=== PATIENT | male | born 1995 | race Caucasian/White ===

== ENCOUNTER 2016-08-19 01:53 | Emergency (ER) | payer SELFPAY ==
[~2016-08-19] VITALS: Ht 177.8 cm; Wt 80.0 kg
[2016-08-19 02:00] VITALS: BP 133/83; PULSE 114; RESP 18; RESP 20; TEMP 98.6; O2SAT 100; O2SAT 96
[2016-08-19] MEDS ORDERED: ONDANSETRON HCL 4 MG/2 ML VIAL IV ONE (02:15)
[2016-08-19] MEDS ORDERED: SODIUM CHLOR 0.9% 1000 ML INJ 1,000 ML IV ONE (02:15)
--- NOTE | 2016-08-19 02:26 | PD ---
HPI Chief Complaint: Alcohol/Drug Intoxication Time Seen by Provider: 02:05 Travel History International Travel<30 days: No Contact w/Intl Traveler<30days: No Traveled to known affect area: No History of Present Illness HPI The patient is a 20 year old male who presents to the [facility] emergency department with a history of being found him a local parking lot acutely intoxicated. Prior to arrival, the patient was apparently combative with the ambulance services and the police. According to the nurse that received the patient from ambulance services the patient was restrained by the police and placed in handcuffs. The patient was brought to the ground on the asphalt has abrasions to bilateral anterior knees. The patient is also noted on arrival to have ecchymosis around the right eye. The patient denies having any acute complaints. The patient did experience nausea and vomiting prior to arrival. The patient is visiting the area for spring. The patient's clothes were covered in emesis. The patient denies any recent fevers, cough, congestion, neck pain, chest pain, shortness of breath, abdominal pain, diarrhea, urinary symptoms, or neurologic symptoms. [facility] Past Medical History Narrative Medical The patient's past medical history is reportedly none. Medical History: Unable to Obtain Tetanus Vaccination: Unknown Influenza Vaccination: Yes Past Surgical History Narrative Surgical The patient's past surgical history is reportedly none. Surgical History: Unable to Obtain Social History Alcohol Use: Yes (unknown amount this evening) Tobacco Use: No Substance Use: No Allergies-Medications (Allergen,Severity, Reaction): Coded Allergies: No Known Allergies (Unverified , 08/19/16) Reported Meds & Prescriptions Reported Meds & Active Scripts Active Active Prescriptions or Reported Medications Unobtainable Review of Systems Except as stated in HPI: all other systems reviewed are Neg General / Constitutional: No: Fever Eyes: No: Visual changes HENT: No: Headaches Cardiovascular: No: Chest Pain or Discomfort Respiratory: No: Shortness of Breath Gastrointestinal: Positive: Nausea, Vomiting, No: Abdominal Pain Genitourinary: No: Dysuria Musculoskeletal: No: Pain Skin: No Rash Neurologic: Positive: Change in Mentation, Slurred Speech, No: Weakness, Focal Abnormalities, Sensory Disturbance Psychiatric: Positive: Substance Abuse, No: Depression Endocrine: No: Polydipsia Hematologic/Lymphatic: No: Easy Bruising Physical Exam Narrative General: The patient is a well-developed well-nourished male in no acute distress. Head and Neck exam: Head is normocephalic, evidence of trauma with ecchymosis surrounding the right eye. Eyes: Extraocular motion testing is unable to be assessed as the patient is uncooperative, pupils are equal round and reactive to light. Nose: Midline septum with pink mucous membranes Mouth: Dentition unremarkable. Moist mucus membranes. Posterior oropharynx is not erythematous. No tonsillar hypertrophy. Uvula midline. Airway patent. Neck: No palpable lymphadenopathy. No nuchal rigidity. No thyromegaly. Cardiovascular: Regular rate and rhythm without murmurs, gallops, or rubs. Lungs: Clear to auscultation bilaterally. No wheezes, rhonchi, or rales. Abdomen: Soft, without tenderness to palpation in all 4 quadrants of the abdomen. No guarding, rebound, or rigidity. Normal bowel sounds are audible. Extremities: No clubbing, cyanosis, or edema. 2+ pulses in all 4 extremities. The patient has an abrasion superficially to bilateral anterior knees. The patient has an abrasion to the anterior right shoulder. There is no bony deformity, crepitus, step off, or tenderness on palpation. Back: No costovertebral angle tenderness to palpation. Neurologic Exam: The patient has slurred speech with an odor of alcohol about him. The patient is uncooperative with formal neurologic testing although he moves all extremities equally with 5 over 5 strength and intact sensation over all dermatomes. No evidence of facial asymmetry. Data Data Last Documented VS Vital Signs Date Time Temp Pulse Resp B/P Pulse Ox O2 Delivery O2 Flow Rate FiO2 08/19/16 11:00 73 16 114/73 98 Room Air 08/19/16 07:14 98.5 Orders Complete Blood Count With Diff (08/19/16 02:10) Comprehensive Metabolic Panel (08/19/16 02:10) Urinalysis - C+S If Indicated (08/19/16 02:10) Magnesium (Mg) (08/19/16 02:10) Chest, Single Ap (08/19/16 02:10) Iv Access Insert/Monitor (08/19/16 02:10) Ecg Monitoring (08/19/16 02:10) Oximetry (08/19/16 02:10) Drug Screen, Random Urine (08/19/16 02:10) Alcohol (Ethanol) (08/19/16 02:10) Sodium Chlor 0.9% 1000 Ml Inj (Ns 1000 M (08/19/16 02:15) Ondansetron Inj (Zofran Inj) (08/19/16 02:15) Ct Brain W/O Iv Contrast(Rout) (08/19/16 02:26) Ct Cerv Spine W/O Contrast (08/19/16 02:26) Cefazolin 2 Gm Premix (Ancef 2 Gm Premix (08/19/16 02:30) Qbqn-Sri-Dptdxq (Booster) Inj (Boostrix (08/19/16 02:30) Calcium Gluconate Inj (Calcium Gluconate (08/19/16 05:45) Labs Laboratory Tests Test 08/19/16 08/19/16 02:30 03:41 White Blood Count 9.5 TH/MM3 Red Blood Count 4.49 MIL/MM3 Hemoglobin 13.9 GM/DL Hematocrit 39.7 % Mean Corpuscular Volume 88.5 FL Mean Corpuscular Hemoglobin 31.0 PG Mean Corpuscular Hemoglobin 35.0 % Concent Red Cell Distribution Width 12.5 % Platelet Count 257 TH/MM3 Mean Platelet Volume 8.8 FL Neutrophils (%) (Auto) 81.9 % Lymphocytes (%) (Auto) 13.1 % Monocytes (%) (Auto) 4.4 % Eosinophils (%) (Auto) 0.2 % Basophils (%) (Auto) 0.4 % Neutrophils # (Auto) 7.8 TH/MM3 Lymphocytes # (Auto) 1.3 TH/MM3 Monocytes # (Auto) 0.4 TH/MM3 Eosinophils # (Auto) 0.0 TH/MM3 Basophils # (Auto) 0.0 TH/MM3 CBC Comment DIFF FINAL Differential Comment Sodium Level 141 MEQ/L Potassium Level 5.1 MEQ/L Chloride Level 108 MEQ/L Carbon Dioxide Level 22.7 MEQ/L Anion Gap 10 MEQ/L Blood Urea Nitrogen 7 MG/DL Creatinine 0.80 MG/DL Estimat Glomerular Filtration 122 ML/MIN Rate Random Glucose 116 MG/DL Calcium Level 7.2 MG/DL Protein Corrected Calcium 7.6 MG/DL Magnesium Level 1.8 MG/DL Total Bilirubin 0.2 MG/DL Aspartate Amino Transf 50 U/L (AST/SGOT) Alanine Aminotransferase 47 U/L (ALT/SGPT) Alkaline Phosphatase 46 U/L Total Protein 6.9 GM/DL Albumin 3.5 GM/DL Ethyl Alcohol Level 268 MG/DL [facility] Medical Decision Making Medical Screen Exam Complete: Yes Emergency Medical Condition: Yes Medical Record Reviewed: Yes Interpretation(s) Laboratory Tests Test 08/19/16 08/19/16 02:30 03:41 White Blood Count 9.5 TH/MM3 Red Blood Count 4.49 MIL/MM3 Hemoglobin 13.9 GM/DL Hematocrit 39.7 % Mean Corpuscular Volume 88.5 FL Mean Corpuscular Hemoglobin 31.0 PG Mean Corpuscular Hemoglobin 35.0 % Concent Red Cell Distribution Width 12.5 % Platelet Count 257 TH/MM3 Mean Platelet Volume 8.8 FL Neutrophils (%) (Auto) 81.9 % Lymphocytes (%) (Auto) 13.1 % Monocytes (%) (Auto) 4.4 % Eosinophils (%) (Auto) 0.2 % Basophils (%) (Auto) 0.4 % Neutrophils # (Auto) 7.8 TH/MM3 Lymphocytes # (Auto) 1.3 TH/MM3 Monocytes # (Auto) 0.4 TH/MM3 Eosinophils # (Auto) 0.0 TH/MM3 Basophils # (Auto) 0.0 TH/MM3 CBC Comment DIFF FINAL Differential Comment Sodium Level 141 MEQ/L Potassium Level 5.1 MEQ/L Chloride Level 108 MEQ/L Carbon Dioxide Level 22.7 MEQ/L Anion Gap 10 MEQ/L Blood Urea Nitrogen 7 MG/DL Creatinine 0.80 MG/DL Estimat Glomerular Filtration 122 ML/MIN Rate Random Glucose 116 MG/DL Calcium Level 7.2 MG/DL Protein Corrected Calcium 7.6 MG/DL Magnesium Level 1.8 MG/DL Total Bilirubin 0.2 MG/DL Aspartate Amino Transf 50 U/L (AST/SGOT) Alanine Aminotransferase 47 U/L (ALT/SGPT) Alkaline Phosphatase 46 U/L Total Protein 6.9 GM/DL Albumin 3.5 GM/DL Ethyl Alcohol Level 268 MG/DL Differential Diagnosis Alcohol intoxication, versus other substance intoxication, versus intracranial hemorrhage, versus concussion Narrative Course During the course of the patients emergency department visit, the patients history, examination, and differential diagnosis were reviewed with the patient. The patient had IV access obtained and blood work sent for analysis. The patient was placed on a cardiac exercise physiologist with oximetry and blood pressure monitoring. A CT scan of the head and neck was ordered. The patient was provided normal saline 1 L IV fluid bolus, Zofran 4 mg IV. The patient was given calcium gluconate gram IV. The patients laboratory studies were reviewed and remarkable for a white count of 9.5, hemoglobin 13.9, platelets 257 with 81.9 neutrophils. CMP is remarkable for chloride of 108, protein corrected calcium 7.6, glucose 116, AST 50, alcohol level [id number]. Radiology studies were reviewed and remarkable for a CT scan of the brain that shows a mild chronic sinus disease in the hypoplastic frontal area, otherwise negative, no acute intracranial process trauma or fracture, CT scan of the C- spine shows no acute abnormality. Chest x-ray shows atelectasis at the left lung base. No other acute abnormality. The patient will be observed until he is awake and alert and able to walk without assistance, or has a ride available home. The patient is resting comfortably and feels better, is alert and in no distress. The patients results and examination findings were discussed with the patient. The repeat examination is unremarkable and benign. The history, exam, diagnostic testing, and current condition do not suggest any significant pathology to warrant further testing, continued ED treatment, admission, or surgical evaluation at this point. The vital signs have been stable. The patient does not have uncontrollable pain, intractable vomiting, or other significant symptoms. The patient's condition is stable and appropriate for discharge. The patient will pursue further outpatient evaluation with a primary care physician or other designated or consulting physician as indicated in the discharge instructions. The patient expressed understanding and was agreeable with this plan. Diagnosis Primary Impression: Alcohol intoxication Qualified Code: F10.129 - Alcohol intoxication, with unspecified complication Additional Impression: Altered mental status Qualified Code: R40.0 - Somnolence Referrals: Primary Care Physician 1 week Patient Instructions: Alcohol Intoxication (ED), General Instructions Med/Other Pt SpecificInfo: No Change to Meds Scripts Unable to Obtain Active Prescriptions or Reported Meds Disposition: 01 DISCHARGE HOME Condition: Stable Patsy Silva MD Aug 19, 2016 02:26 Patsy Silva MD Aug 19, 2016 02:26
[2016-08-19] MEDS ORDERED: DIPHTH/TETANUS/ACEL PERTUSSIS (BOOSTER) 0.5 ML VIAL/PFS IM ONE (02:30)
[2016-08-19] MEDS ORDERED: ceFAZolin 2 GM PREMIX 50 ML IV ONE (02:30)
--- NOTE | 2016-08-19 02:33 | RADRPT ---
EXAM DATE/TIME: 08/19/2016 02:20 [facility] COMPARISON: No previous studies available for comparison. INDICATIONS : Short of breath. MEDICAL HISTORY : None. SURGICAL HISTORY : None. ENCOUNTER: Initial ACUITY: 1 day PAIN SCORE: 0/10 LOCATION: Bilateral chest FINDINGS: A single view of the chest demonstrates the lungs to be symmetrically aerated with possible atelectas is or early infiltrate beginning in the left base. Right lung is clear. There are no effusions. Heart size is normal. Mild dextroscoliosis of the dorsal spine. CONCLUSION: Possible atelectasis or early infiltrate medially in the left base. Right lung is clear. Kin James MD on August 19, 2016 at 2:29 Board Certified Radiologist. This report was verified electronically.
[2016-08-19 02:43] VITALS: RESP 20; O2SAT 95
[2016-08-19 02:52] LABS: AUTOMATED NEUTROPHIL # 7.8 TH/MM3 (1.8-7.7); BASOPHIL % 0.4 % (0.0-2.0); EOSINOPHIL % 0.2 % (0.0-4.0); HEMATOCRIT 39.7 % (39.0-51.0); HEMO FLAGS DIFF FINAL; LYMPH % 13.1 % (9.0-44.0); LYMPHOCYTE # 1.3 TH/MM3 (1.0-4.8); MEAN CELL VOLUME 88.5 FL (80.0-100.0); MONO % 4.4 % (0.0-8.0); NEUT % 81.9 % (16.0-70.0); PLATELET COUNT 257 TH/MM3 (150-450); RED BLOOD COUNT 4.49 MIL/MM3 (4.50-5.90); RED CELL DISTRIBUTION WIDTH 12.5 % (11.6-17.2); WHITE BLOOD COUNT 9.5 TH/MM3 (4.0-11.0)
[2016-08-19 03:00] VITALS: BP 122/56; PULSE 103; RESP 18; O2SAT 96
--- NOTE | 2016-08-19 03:04 | RADRPT ---
EXAM DATE/TIME: 08/19/2016 02:53 [facility] COMPARISON: No previous studies available for comparison. INDICATIONS : Found unresponsive. RADIATION DOSE: 37.85 CTDIvol (mGy) MEDICAL HISTORY : Non-responsive. SURGICAL HISTORY : Non-responsive. ENCOUNTER: Initial ACUITY: 1 day PAIN SCALE: Non-responsive LOCATION: cranial TECHNIQUE: Multiple contiguous axial images were obtained of the head. Using automated exposure control and adj ustment of the mA and/or kV according to patient size, radiation dose was kept as low as reasonably a chievable to obtain optimal diagnostic quality images. FINDINGS: CEREBRUM: The ventricles are normal for age. No evidence of midline shift, mass lesion, hemorrhage or acute in farction. No extra-axial fluid collections are seen. POSTERIOR FOSSA: The cerebellum and brainstem are intact. The 4th ventricle is midline. The cerebellopontine angle i s unremarkable. EXTRACRANIAL: The visualized portion of the orbits is intact. Isolated mucoperiosteal thickening in a frontal sinus SKULL: The calvaria is intact. No evidence of skull fracture. CONCLUSION: 1. Mild chronic sinus disease in the hypoplastic frontal. 2. Otherwise negative. No acute intracranial process, trauma or fracture. Kni James MD on August 19, 2016 at 3:01 Board Certified Radiologist. This report was verified electronically.
[2016-08-19 03:18] LABS: TOTAL BILIRUBIN ADULT 0.2 MG/DL (0.2-1.0)
--- NOTE | 2016-08-19 03:28 | RADRPT ---
EXAM DATE/TIME: 08/19/2016 02:53 [facility] COMPARISON: No previous studies available for comparison. INDICATIONS : Found unresponsive. RADIATION DOSE: 21.37 CTDIvol (mGy) MEDICAL HISTORY : Non-responsive. SURGICAL HISTORY : Non-responsive. ENCOUNTER: Initial ACUITY: 1 day PAIN SCALE: Non-responsive LOCATION: neck TECHNIQUE: Volumetric scanning of the cervical spine was performed. Multiplanar reconstructions in the sagittal, coronal and oblique axial planes were performed. Using automated exposure control and adjustment o f the mA and/or kV according to patient size, radiation dose was kept as low as reasonably achievable to obtain optimal diagnostic quality images. FINDINGS: VERTEBRAE: Normal vertebral body height. ALIGNMENT: No evidence of subluxation. C2-C3: The bony spinal canal is normal in size. No evidence of disc bulge or herniation. The neural forami na are bilaterally patent. C3-C4: The bony spinal canal is normal in size. No evidence of disc bulge or herniation. The neural forami na are bilaterally patent. C4-C5: The bony spinal canal is normal in size. No evidence of disc bulge or herniation. The neural forami na are bilaterally patent. C5-C6: The bony spinal canal is normal in size. No evidence of disc bulge or herniation. The neural forami na are bilaterally patent. C6-C7: The bony spinal canal is normal in size. No evidence of disc bulge or herniation. The neural forami na are bilaterally patent. C7-T1: The bony spinal canal is normal in size. No evidence of disc bulge or herniation. The neural forami na are bilaterally patent. CONCLUSION: Negative exam. No fracture. Kin James MD on August 19, 2016 at 3:26 Board Certified Radiologist. This report was verified electronically.
[2016-08-19 04:08] LABS: CALCIUM-PROTEIN CORRECTED 7.6 MG/DL (8.5-10.1); MAGNESIUM 1.8 MG/DL (1.5-2.5)
[2016-08-19 04:09] LABS: BICARBONATE 22.7 MEQ/L (21.0-32.0)
[2016-08-19 04:10] LABS: POTASSIUM 5.1 MEQ/L (3.5-5.1)
[2016-08-19] MEDS ORDERED: CALCIUM GLUCONATE INJ 1 GM in DEXTROSE 5% IN WATER 100ML INJ 100 ML IV ONE ×2 (05:45)
[2016-08-19 07:14] VITALS: BP 115/83; PULSE 98; RESP 14; TEMP 98.5
[2016-08-19 11:00] VITALS: BP 114/73; PULSE 73; RESP 16; O2SAT 98
== END 2016-08-19 11:00 | disposition home or self-care (01) ==
LOC: NEDAMB 01:53 → NEPA 11:00
DX: F10.129 Alcohol abuse with intoxication, unspecified (principal); R41.82 Altered mental status, unspecified; S80.212A Abrasion, left knee, initial encounter; S80.211A Abrasion, right knee, initial encounter; S05.11XA Contusion of eyeball and orbital tissues, right eye, initial encounter; R11.2 Nausea with vomiting, unspecified; Y35.91XA Legal intervention, means unspecified, law enforcement official injured, initial encounter; Y93.89 Activity, other specified; Y92.481 Parking lot as the place of occurrence of the external cause; Z23 Encounter for immunization
CPT/HCPCS: 70450; 71010; 72125; 80053; 80307; 83735; 85025; 90715; 96365; 96375; 99284; J0610; J0690; J2405; J7030